=== PATIENT | female | born 1980 | race African-American/Black ===

== ENCOUNTER 2016-08-09 21:19 | Emergency (ER) | payer OTHER, MEDICARE ==
[~2016-08-09] VITALS: Ht 167.6 cm; Wt 86.0 kg
[~2016-08-09 21:19] MED LIST: AZIT1PAC7 PO; FLONAS NS
[2016-08-09] MEDS ORDERED: KETOROLAC 30MG/ML VIAL IM ONE (23:00)
[2016-08-09] MEDS ORDERED: IPRATROPIUM/ALBUTEROL 0.5-3(2.5)MG/3ML NEB HHN ONE (23:00)
[2016-08-10 00:25] VITALS: BP 120/74
[2016-08-10] MEDS ORDERED: PREDNISONE 20MG TABLET PO ONE (00:30)
== END 2016-08-10 01:40 | disposition home or self-care (01) ==
LOC: ER 21:19
DX: J45.909 Unspecified asthma, uncomplicated (principal); Z88.0 Allergy status to penicillin
CPT/HCPCS: 71020; 81025; 94640; 96372; 99284; J1885; J7512; Z7610; 99283; J7620

== ENCOUNTER 2020-12-03 08:44 | Emergency (ER) | payer MEDICAID, MEDICARE, OTHER ==
[~2020-12-03] VITALS: Ht 167.6 cm; Wt 75.0 kg
[2020-12-03 09:38] VITALS: BP 117/87
== END 2020-12-03 09:39 | disposition home or self-care (01) ==
LOC: ER 08:46
DX: B33.8 Other specified viral diseases (principal); J45.909 Unspecified asthma, uncomplicated; F12.10 Cannabis abuse, uncomplicated; Z20.822 Contact with and (suspected) exposure to COVID-19
CPT/HCPCS: 99283; C9803; U0003; U0005

== ENCOUNTER 2020-12-30 20:24 | Emergency (ER) | payer MEDICAID ==
[~2020-12-30] VITALS: Ht 167.6 cm; Wt 73.0 kg
[2020-12-30] MEDS ORDERED: ONDANSETRON HCL 4MG/2ML INJ IV STA (20:57)
[2020-12-30] MEDS ORDERED: SODIUM CHLORIDE 0.9% 1,000 ML IV ONE (21:00)
[2020-12-30 21:21] LABS: BASOPHILS % 0.3 % (0.0-2.0); EOSINOPHILS % 0.1 % (0.0-5.0); HEMATOCRIT. 42.6 % (36.0-48.0); HEMOGLOBIN. 13.9 g/dL (12.0-16.0); LYMPHOCYTES % 7.4 % (20.0-50.0); MEAN CORPUSCULAR VOLUME 88.8 fL (81.0-99.0); MEAN PLATELET VOLUME 8.7 fl (7.4-10.4); MONOCYTES % 6.5 % (2.0-8.0); NEUTROPHILS % 85.7 % (40.0-76.0); PLATELET 349 x1000/uL (130-400); RED CELL DISTRIBUTION WIDTH 14.2 % (11.6-14.6)
[2020-12-30 21:28] LABS: CHLORIDE 100 mEq/L (98-107)
[2020-12-30 22:53] LABS: CHLORIDE 103 mEq/L (98-107)
[2020-12-30] MEDS ORDERED: METOCLOPRAMIDE HCL 10MG/2ML VIAL IV ONE (23:15)
[2020-12-30] MEDS ORDERED: METO5TAB86 MT (23:41)
[2020-12-31 00:37] VITALS: BP 141/61
[2020-12-31] MEDS ORDERED: METO-293 PO (13:01)
[2021-01-01] MEDS ORDERED: CEPH500C2 MT ×2 (20:03→20:07)
== END 2020-12-31 00:37 | disposition home or self-care (01) ==
LOC: ER 20:24
DX: R11.2 Nausea with vomiting, unspecified (principal); A05.9 Bacterial foodborne intoxication, unspecified; J45.909 Unspecified asthma, uncomplicated; F12.10 Cannabis abuse, uncomplicated; Z88.0 Allergy status to penicillin
CPT/HCPCS: 36415; 80048; 80053; 81025; 83690; 85025; 96361; 96374; 96375; 99284; J2405; J2765; J7030

== ENCOUNTER 2021-01-01 15:50 | Emergency (ER) | payer MEDICAID ==
[~2021-01-01] VITALS: Ht 167.6 cm; Wt 73.0 kg
[~2021-01-01 15:50] MED LIST changes: +METO-293 PO; +METO5TAB86 MT
[2021-01-01] MEDS ORDERED: ONDANSETRON HCL 4MG/2ML INJ IV STA (18:49)
[2021-01-01] MEDS ORDERED: FAMOTIDINE 20MG/2ML VIAL IV STA (18:49)
[2021-01-01] MEDS ORDERED: MAGNESIUM/ALUMINUM HYDROXIDE/SIMETHICONE 30ML UDC PO STA (18:49)
[2021-01-01] MEDS ORDERED: SODIUM CHLORIDE 0.9% 1,000 ML IV ONE (19:00)
[2021-01-01 19:28] LABS: CLARITY URINE CLOUDY (CLEAR); COLOR URINE YELLOW (YELLOW); KETONES URINE 1+ (NEGATIVE); LEUKOCYTE ESTERASE URINE 2+ (NEGATIVE); NITRITE URINE NEGATIVE (NEGATIVE); OCCULT BLOOD URINE 2+ (NEGATIVE); PROTEIN URINE TRACE (NEGATIVE); SPECIFIC GRAVITY URINE 1.021 (1.005-1.030)
[2021-01-01 19:34] LABS: BASOPHILS % 0.5 % (0.0-2.0); EOSINOPHILS % 0.8 % (0.0-5.0); HEMATOCRIT. 41.8 % (36.0-48.0); HEMOGLOBIN. 13.8 g/dL (12.0-16.0); LYMPHOCYTES % 24.6 % (20.0-50.0); MEAN CORPUSCULAR HEMOGLOBIN 29.3 pg (28.0-32.0); MEAN CORPUSCULAR VOLUME 88.6 fL (81.0-99.0); MEAN PLATELET VOLUME 8.2 fl (7.4-10.4); MONOCYTES % 11.1 % (2.0-8.0); PLATELET 321 x1000/uL (130-400); RED BLOOD CELL COUNT 4.72 mill/uL (4.2-5.4); RED CELL DISTRIBUTION WIDTH 13.8 % (11.6-14.6)
[2021-01-01 19:38] LABS: CHLORIDE 99 mEq/L (98-107)
[2021-01-01 19:45] LABS: UCG SCREEN NEGATIVE
[2021-01-01] MEDS ORDERED: CEPH500C2 MT ×2 (20:03→20:07)
[2021-01-01] MEDS ORDERED: POTASSIUM CHLORIDE 20MEQ TABLET SR PO NR (20:15)
[2021-01-01] MEDS ORDERED: CEPHALEXIN 250MG CAPSULE PO NR (20:15)
[2021-01-01] MEDS ORDERED: METOCLOPRAMIDE HCL 10MG/2ML VIAL IV ONE (20:30)
[2021-01-01 21:06] VITALS: BP 125/66
== END 2021-01-01 21:07 | disposition home or self-care (01) ==
LOC: ER 15:50
DX: N39.0 Urinary tract infection, site not specified (principal); E87.6 Hypokalemia; J45.909 Unspecified asthma, uncomplicated; Z87.891 Personal history of nicotine dependence; Z88.0 Allergy status to penicillin
CPT/HCPCS: 36415; 71045; 80053; 81003; 81025; 83690; 85025; 87077; 87086; 87186; 96361; 96374; 96375; 99284; J2405; J3490; J7030

== ENCOUNTER 2021-02-15 14:09 | Emergency (ER) | payer MEDICAID ==
[~2021-02-15] VITALS: Ht 167.6 cm; Wt 75.0 kg
[~2021-02-15 14:09] MED LIST changes: +CEPH500C2 MT
[2021-02-15 14:17] VITALS: BP 141/45
[2021-02-15] MEDS ORDERED: MORPHINE SULFATE 4 MG/ML CPJ (NOT FOR IM USE) IV STA (14:20)
[2021-02-15] MEDS ORDERED: ONDANSETRON HCL 4MG/2ML INJ IV STA (14:20)
[2021-02-15] MEDS ORDERED: SODIUM CHLORIDE 0.9% 1,000 ML IV ONE (14:30)
[2021-02-15 14:42] LABS: CLARITY URINE CLOUDY (CLEAR); COLOR URINE YELLOW (YELLOW); KETONES URINE TRACE (NEGATIVE); LEUKOCYTE ESTERASE URINE 2+ (NEGATIVE); NITRITE URINE NEGATIVE (NEGATIVE); OCCULT BLOOD URINE 1+ (NEGATIVE); PH URINE 5.5 (4.5-8.0); PROTEIN URINE 1+ (NEGATIVE); SPECIFIC GRAVITY URINE 1.016 (1.005-1.030); UROBILINOGEN URINE 0.2 E.U./dL (0.2-1.0)
[2021-02-15 15:12] LABS: BASOPHILS % 0.5 % (0.0-2.0); EOSINOPHILS % 0.2 % (0.0-5.0); HEMATOCRIT. 45.7 % (36.0-48.0); HEMOGLOBIN. 15.2 g/dL (12.0-16.0); LYMPHOCYTES % 11.5 % (20.0-50.0); MEAN CORPUSCULAR HEMOGLOBIN 28.8 pg (28.0-32.0); MEAN CORPUSCULAR VOLUME 86.6 fL (81.0-99.0); MONOCYTES % 8.5 % (2.0-8.0); NEUTROPHILS % 79.3 % (40.0-76.0); PLATELET 361 x1000/uL (130-400); RED BLOOD CELL COUNT 5.28 mill/uL (4.2-5.4); RED CELL DISTRIBUTION WIDTH 14.1 % (11.6-14.6)
[2021-02-15 15:17] LABS: CHLORIDE 99 mEq/L (98-107)
[2021-02-16] MEDS ORDERED: METR500T MT (00:16)
[2021-02-16] MEDS ORDERED: CIPR500T5 MT (00:16)
[2021-02-16] MEDS ORDERED: T3 PO (00:16)
== END 2021-02-15 18:45 | disposition left against medical advice (07) ==
LOC: ER 14:09
DX: N39.0 Urinary tract infection, site not specified (principal); A59.9 Trichomoniasis, unspecified
CPT/HCPCS: 36415; 80053; 81003; 81025; 83690; 85025; 87086; 93005; 99284; J7030

== ENCOUNTER 2021-02-15 18:40 | Emergency (ER) | payer MEDICAID ==
[~2021-02-15] VITALS: Ht 170.2 cm; Wt 64.0 kg
[2021-02-15] MEDS ORDERED: ONDANSETRON 4MG ODT PO STA (18:45)
[2021-02-15 19:03] LABS: BASOPHILS % 0.3 % (0.0-2.0); EOSINOPHILS % 0.2 % (0.0-5.0); HEMOGLOBIN. 14.8 g/dL (12.0-16.0); MEAN CORPUSCULAR HEMOGLOBIN 29.1 pg (28.0-32.0); MEAN CORPUSCULAR VOLUME 86.2 fL (81.0-99.0); MEAN PLATELET VOLUME 7.9 fl (7.4-10.4); MONOCYTES % 6.8 % (2.0-8.0); NEUTROPHILS % 79.7 % (40.0-76.0); PLATELET 335 x1000/uL (130-400); RED BLOOD CELL COUNT 5.11 mill/uL (4.2-5.4); RED CELL DISTRIBUTION WIDTH 14.2 % (11.6-14.6)
[2021-02-15 19:10] LABS: CHLORIDE 100 mEq/L (98-107)
[2021-02-15 19:13] LABS: ETHANOL BLOOD < 10 mg/dL
[2021-02-15 19:16] LABS: HCG SCREEN NEGATIVE
[2021-02-15 21:55] VITALS: BP 167/75
[2021-02-15] MEDS ORDERED: ONDANSETRON HCL 4MG/2ML INJ IV STA ×2 (22:25→23:38)
[2021-02-15] MEDS ORDERED: KETOROLAC 30MG/ML VIAL IV STA (22:25)
[2021-02-15] MEDS ORDERED: SODIUM CHLORIDE 0.9% 1,000 ML IV ONE (22:30)
[2021-02-15] MEDS ORDERED: LEVOFLOXACIN 500MG PREMIX 100 ML IV ONE (22:30)
[2021-02-15] MEDS ORDERED: CLINDAMYCIN 600 MG in DEXTROSE 5% WATER 50 ML IV ONE (22:30)
[2021-02-15] MEDS ORDERED: FAMOTIDINE 20MG/2ML VIAL IV ONE (22:30)
[2021-02-15] MEDS ORDERED: CLINDAMYCIN 600MG PREMIX 50 ML IV NR (22:45)
[2021-02-15] MEDS ORDERED: MORPHINE SULFATE 4 MG/ML CPJ (NOT FOR IM USE) IV STA (23:38)
[2021-02-16] MEDS ORDERED: CIPR500T5 MT (00:16)
[2021-02-16] MEDS ORDERED: METR500T MT (00:16)
[2021-02-16] MEDS ORDERED: T3 PO (00:16)
== END 2021-02-16 00:45 | disposition home or self-care (01) ==
LOC: ER 18:40
DX: N12 Tubulo-interstitial nephritis, not specified as acute or chronic (principal); F12.10 Cannabis abuse, uncomplicated; J45.909 Unspecified asthma, uncomplicated; Z88.0 Allergy status to penicillin; Z79.899 Other long term (current) drug therapy; Z98.890 Other specified postprocedural states
CPT/HCPCS: 36415; 80053; 80320; 83690; 84703; 85025; 96374; 96375; 99284; J1885; J1956; J2405; J3490; J7030; J7060; Q0162; G0480